=== PATIENT | male | born 1955 | race Caucasian/White ===

== ENCOUNTER → 2024-03-02 | Day surgery (SDC) | payer MEDICARE ==
[2024-02-28 13:40] VITALS: BMI 34.8
[~2024-03-02] MED LIST: Bacitracin Zinc Ointment 30 gm TUBE ONE; Dexamethasone 4 mg/ml Vial ONE; EPINEPHrine 1 MG/ML VIAL ONE; Lidocaine 1% (PF) 30 ML VIAL ONE; Lidocaine 1% PF 5 ML VIAL ONE; Ondansetron PF 4 MG/2 ML Vial ONE; Oxymetazoline HCl 0.05% (30 ML BOT) ONE; PROPOFOL 20 ML ONE; Rocuronium Bromide 10 MG/ML (10ML VIAL) ONE; SUGAMMADEX SODIUM 200 MG/2 ML VIAL ONE; fentaNYL PF 100 MCG/2 ML SYRINGE ONE
[2024-03-02 13:28] LABS: Hematocrit 45.6 % (42.0-52.0); Hemoglobin 16.1 g/dL (14.0-18.0)
[2024-03-02 13:48] LABS: Anion Gap 12 mmol/L (10-20); BUN (Urea Nitrogen) 19 mg/dL (8.4-25.7); Calc. Creatinine Clearance 96 mL/min (70-130); Calcium 9.8 mg/dL (7.8-10.44); Carbon Dioxide 23 mmol/L (23-31); Chloride 111 mmol/L (98-107); Estimated GFR 69; Glucose 135 mg/dL (80-115); Potassium 3.9 mmol/L (3.5-5.1); Sodium 142 mmol/L (136-145)
== END ==
LOC: SDC 11:07
PROVIDERS: ATTEND Specialist
PROC: 099R8ZZ Drainage of Left Maxillary Sinus, Via Natural or Artificial Opening Endoscopic (ICD-10-PCS; principal; 2024-03-02)
PROC: 09BR8ZZ Excision of Left Maxillary Sinus, Via Natural or Artificial Opening Endoscopic (ICD-10-PCS; 2024-03-02)
DX: J33.0 Polyp of nasal cavity (principal); J34.3 Hypertrophy of nasal turbinates; J30.9 Allergic rhinitis, unspecified; E78.00 Pure hypercholesterolemia, unspecified; I10 Essential (primary) hypertension; E11.9 Type 2 diabetes mellitus without complications; Z79.84 Long term (current) use of oral hypoglycemic drugs; Z79.899 Other long term (current) drug therapy; Z98.52 Vasectomy status; Z98.890 Other specified postprocedural states; Z87.891 Personal history of nicotine dependence
CPT/HCPCS: 31267; 80048; 85014; 85018; 93005; J0171; J1100; J2001; J2405; J2704; 88304; 88305; 93010